=== PATIENT | female | born 1980 | race Hispanic/Latino ===

== ENCOUNTER 2016-10-01 16:37 | Emergency (ER) | payer OTHER ==
[2016-10-01] MEDS ORDERED: OPTIRAY 350 100 ML VIAL HMH IV ONE (16:38)
[2016-10-01] MEDS ORDERED: CALC CARB 500 MG CHEWTAB PO ONE (17:55)
== END 2016-10-01 22:06 | disposition home or self-care (01) ==
LOC: ER 16:37
CPT/HCPCS: 36415 ×2; 71260 ×2; 80053 ×2; 81001 ×2; 82553 ×2; 84484 ×2; 84702 ×2; 85025 ×2; 85379 ×2; 86901 ×2; 93005 ×2; 99284; Q9967